=== PATIENT | male | born 1965 | race Caucasian/White ===

== ENCOUNTER 2016-12-14 14:51 | Emergency (ER) | payer OTHER ==
[2016-12-14 14:55] VITALS: BP 140/83; PULSE 118; RESP 18; TEMP 97.3; O2SAT 93
--- NOTE | 2016-12-14 16:11 | EDPHY ---
H & P Smoking Status: Never smoked Time Seen by Provider: 12/14/16 15:54 HPI/ROS: CHIEF COMPLAINT: Left ankle injury HISTORY OF PRESENT ILLNESS: 51-year-old male presents to the emergency department by private vehicle complaining of pain in his left ankle. The patient was playing tennis about 3 hours prior to arrival and went to lunged toward the neck at and developed severe pain in his left ankle. Denies any other trauma or injury. He is having trouble weight-bearing. ROS: Denies numbness or tingling in his toes, pain in the left knee or hip. ( Osiris Garcia) Past Medical/Surgical History: Negative (Osiris Garcia) Social History: (Osiris Garcia) Physical Exam: On examination the patient has obvious deformity to the left Achilles tendon. Clinically I think this patient has a ruptured Achilles tendon. He has no palpable bony tenderness. Nontender to palpate over the lateral or medial malleolus. Left knee is nontender. Gait is not tested. Minimal dorsiflexion. No other palpable bony tenderness. (Osiris Garcia) Constitutional: Initial Vital Signs Temperature (C) 36.3 C 12/14/16 14:53 Heart Rate 118 H 12/14/16 14:53 Respiratory Rate 18 12/14/16 14:53 Blood Pressure 140/83 H 12/14/16 14:53 O2 Sat (%) 93 12/14/16 14:53 O2 Delivery Mode Room Air Allergies/Adverse Reactions: Penicillins Allergy (Verified 12/14/16 14:57) Home Medications: Medication Instructions Recorded NK [No Known Home Meds] 12/14/16 MDM/Departure - MDM Procedures: Patient was placed in a Herron boot and examined post application in good placement with normal INFORMATICS SCIENTIST. (Osiris Garcia) ED Course/Re-evaluation: Clinically I think this patient has a ruptured left Achilles tendon. I do not think any laboratory studies are indicated. He was placed in a Herron boot, he has his own crutches, he will be nonweightbearing of will follow up with orthopedic surgery this week. He was comfortable with this plan. (Osiris Garcia) - Depart Disposition: Home, Routine, Self-Care Clinical Impression: Achilles rupture, left Qualifiers: Encounter type: initial encounter Qualified Code(s): S86.012A - Strain of left Achilles tendon, initial encounter Condition: Good Instructions: Achilles Tendon Rupture (ED) Additional Instructions: Gopal peres for comfort and support. Nonweightbearing, use crutches. Referrals: Randy Rosa MD [Medical Doctor] - As per Instructions ([facility] orthopedic surgeon) Roro Silva MD [Medical Doctor] - As per Instructions (Orthopedic surgeon on- call)
== END 2016-12-14 16:24 | disposition home or self-care (01) ==
DX: S86.012A Strain of left Achilles tendon, initial encounter (principal); X58.XXXA Exposure to other specified factors, initial encounter; Y93.73 Activity, racquet and hand sports
CPT/HCPCS: L4386

== ENCOUNTER 2018-04-21 09:57 | Emergency (ER) | payer OTHER ==
--- NOTE | 2018-04-21 10:17 | EDPHY ---
H & P Stated Complaint: Lightheaded/Dizzy Time Seen by Provider: 04/21/18 10:17 HPI/ROS: HPI: This is a 52-year-old male who presents with Chief Complaint: Lightheadedness, dizziness Location:head Quality: Dizziness Duration: Prior to arrival Signs and Symptoms: No fever, no nasal congestion, no headache, no neck stiffness, no chest pain, no shortness of breath, no nausea, no vomiting, no lower extremity edema Timing: Acute, intermittent episodes Severity: [id number] Context: Patient is generally healthy, takes no medications regularly, presents with 3 episodes of dizziness described as lightheadedness and fullness that started while [place] to [place] this [place]. Patient was in his vehicle in traffic when he started to feel lightheaded. He denies any vision changes, chest pain, shortness of breath, headache, nausea, vomiting, LOC, global amnesia. He reports that the incident lasted approximately 15-30 seconds and self resolved. He denies that the dizziness was positional in nature. He pulled off a eye 25 and went to [employer] saline or shoes as he believes that he may have had low blood sugar. He reports that he only had half a cup of decaf coffee this morning prior to driving to work for a meeting. He reports that this is not abnormal for him to skip breakfast or to have a later breakfast. He did do some thin abnormal last night have a Lisy at dinner reports. No history of cardiac disease in patient or his family. Patient reports that the incident occurred again while he was getting out of his vehicle to go to the [address] and only lasted a few seconds at that time. He has had less stress than normal lately. Patient denies any prodrome of nausea, vomiting, tunnel vision, diaphoresis or warmth. Dizziness or lightheadedness was not associated with any head movement or pressure on the neck. Patient reports that he does not drink enough water throughout the day. Modifying Factors: None Comment: ROS: see HPI Constitutional: No fever, no chills, no weight loss Eyes: No blurred vision Respiratory: No shortness of breath, no cough Cardiovascular: No chest pain Gastrointestinal: No nausea, no vomiting, no diarrhea Genitourinary: No dysuria Extremities: No myalgias Neurologic: No weakness, no numbness Skin: No rashes Hematologic: No bruising, no bleeding MEDICAL/SURGICAL/SOCIAL HISTORY: Medical history: Generally healthy. Does not take any regular medications. Surgical history: Denies Social history: Never smoked. . Family history noncontributory. CONSTITUTIONAL: Extremely polite and cooperative middle-aged male, at bedside, awake and alert, no obvious distress HEENT: Atraumatic and normocephalic, PERRL, EOMI. Nares patent; no rhinorrhea; no nasal mucosal edema. Tympanic membranes clear. Oropharynx clear, no exudate and moist pink mucosa. Airway patent. No lymphadenopathy. No meningismus. No carotid bruits appreciated. Cardiovascular: Normal S1/S2, regular rate, regular rhythm, without murmur rub or gallop. PULMONARY/CHEST: Symmetrical and nontender. Clear to auscultation bilaterally. Good air movement. No accessory muscle usage. ABDOMEN: Soft, nondistended, nontender, no rebound, no guarding, no peritoneal signs, no masses or organomegaly. No CVAT. EXTREMITIES: 2/2 pulses, strength 5/5, no deformities, no clubbing, no cyanosis or edema. NEUROLOGICAL: no focal neuro deficits. GCS 15. SKIN: Warm and dry, no erythema. no rash. Good capillary refill. Source: Patient, Family () Exam Limitations: No limitations - Personal History Current Tetanus/Diphtheria Vaccine: Yes - Medical/Surgical History Hx Asthma: No Hx Chronic Respiratory Disease: No Hx Diabetes: No Hx Cardiac Disease: No Hx Renal Disease: No Hx Cirrhosis: No Hx Alcoholism: No Hx HIV/AIDS: No Hx Splenectomy or Spleen Trauma: No Other PMH: denies - Social History Smoking Status: Never smoked Constitutional: Initial Vital Signs Temperature (C) 36.5 C 04/21/18 10:00 Heart Rate 59 L 04/21/18 10:00 Respiratory Rate 18 04/21/18 10:00 Blood Pressure 148/80 H 04/21/18 10:00 O2 Sat (%) 98 04/21/18 10:00 O2 Delivery Mode Room Air Allergies/Adverse Reactions: Penicillins Allergy (Verified 04/21/18 10:02) Home Medications: Medication Instructions Recorded NK [No Known Home Meds] 12/14/16 Medical Decision Making ED Course/Re-evaluation: EKG, labs, orthostatics, IV fluids ordered Placed on er tech that showed no arrhythmias or heart block while in the emergency room. Dizziness etiology will evaluate for Cardiovascular mediated verses neurally mediated versus orthostatic hypotension mediated. No signs of infectious etiology. Vital signs stable upon arrival. orthostatics unremarkable and did not reproduce dizziness 1025: Initial EKG shows some ST prominence in V3 and V4 but no ST acute ischemic signs 1043: istat troponin negative Labs reviewed. No signs of leukocytosis/anemia/platelet dysfunction/SAFIA/ electrolyte imbalance. No signs of CVA/otitis media/sinusitis/vertigo/eustachian tube dysfunction/ACS/ syncope/arrhythmias 1200: Reassessed patient who reports complete resolution of dizziness. Suspect low blood sugar versus hypovolemia. Patient will follow up with his primary care provider and determine if he needs Cardiology follow-up for tilt-table testing. This patient was seen under the supervision of my secondary supervising physician. I evaluated care for this patient independently. Discussed this patient with Dr. Gaytan. Differential Diagnosis: Dizziness including but not limited to peripheral and central causes of vertigo , orthostatic causes including dehydration, and blood loss. - Data Points Laboratory Results: Laboratory Results 04/21/18 10:30 04/21/18 10:30 04/21/18 04/21/18 04/21/18 10:34 10:30 10:30 WBC 4.93 10^3/uL 10^3/uL (3.80-9.50) RBC 5.16 10^6/uL 10^6/uL (4.40-6.38) Hgb 16.6 g/dL g/dL (13.7-17.5) Hct 47.3 % % (40.0-51.0) MCV 91.7 fL fL (81.5-99.8) MCH 32.2 pg pg (27.9-34.1) MCHC 35.1 g/dL g/dL (32.4-36.7) RDW 11.7 % % (11.5-15.2) Plt Count 174 10^3/uL 10^3/uL (150-400) MPV 9.2 fL fL (8.7-11.7) Neut % (Auto) 54.8 % % (39.3-74.2) Lymph % (Auto) 34.1 % % (15.0-45.0) [place] % (Auto) 8.9 % % (4.5-13.0) Eos % (Auto) 1.4 % % (0.6-7.6) Baso % (Auto) 0.6 % % (0.3-1.7) Nucleat RBC Rel Count 0.0 % % (0.0-0.2) Absolute Neuts (auto) 2.70 10^3/uL 10^3/uL (1.70-6.50) Absolute Lymphs (auto) 1.68 10^3/uL 10^3/uL (1.00-3.00) Absolute Monos (auto) 0.44 10^3/uL 10^3/uL (0.30-0.80) Absolute Eos (auto) 0.07 10^3/uL 10^3/uL (0.03-0.40) Absolute Basos (auto) 0.03 10^3/uL 10^3/uL (0.02-0.10) Absolute Nucleated RBC 0.00 10^3/uL 10^3/uL (0-0.01) Immature Gran % 0.2 % % (0.0-1.1) Immature Gran # 0.01 10^3/uL 10^3/uL (0.00-0.10) Sodium 142 mEq/L mEq/L (135-145) Potassium 4.8 mEq/L mEq/L (3.3-5.0) Chloride 105 mEq/L mEq/L (97-110) Carbon Dioxide 25 mEq/l mEq/l (22-31) Anion Gap 12 mEq/L mEq/L (8-16) BUN 16 mg/dL mg/dL (7-23) Creatinine 1.0 mg/dL mg/dL (0.7-1.3) Estimated GFR > 60 Glucose 85 mg/dL mg/dL (70-100) Calcium 9.4 mg/dL mg/dL (8.5-10.4) POC Troponin I 0.00 ng/mL ng/mL (0.00-0.08) Medications Given: Discontinued Medications Sodium Chloride (Ns) 1,000 mls @ 0 mls/hr IV ONCE ONE; Wide Open PRN Reason: Protocol Stop: 04/21/18 10:24 Last Admin: 04/21/18 10:43 Dose: 1,000 mls Point of Care Test Results: Chemistry 04/21/18 10:34 POC Troponin I 0.00 ng/mL ng/mL (0.00-0.08) Departure - Departure Disposition: Home, Routine, Self-Care Clinical Impression: Dizzinesses Condition: Good Instructions: Dizziness (ED) Additional Instructions: Consume a minimum of 8-10 glasses of water or electrolyte fluid replacement drinks that include Gatorade, Powerade, Pedialyte. Please make sure to eat a minimum 3 meals daily. Change positions slowly if you experience dizziness. Follow-up with your primary care provider in the next 1-2 weeks. If symptoms persist or worsen, follow up with Cardiology to determine if your candidate for tilt-table testing. Referrals: Leigh Link MD [Primary Care Provider] - As per Instructions
[2018-04-21] MEDS ORDERED: NS 1,000 ML IV ONE (10:23)
--- NOTE | 2018-04-21 10:25 | CPEKG ---
Heart Rate: 58 RR Interval: 1034 P-R Interval: 168 QRSD Interval: 84 QT Interval: 440 QTC Interval: 433 P [place]: 5 QRS [place]: 27 T Wave [place]: 2 EKG Severity - OTHERWISE NORMAL ECG - EKG Impression: SINUS ARRHYTHMIA, RATE 49-66 EKG Impression: ST ELEV, PROBABLE NORMAL EARLY REPOL PATTERN Electronically Signed By: Will Gaytan 21-Apr-2018 10:38:25
[2018-04-21 10:42] LABS: PLATELET COUNT 174 10^3/uL (150-400)
[2018-04-21 12:10] VITALS: BP 144/82
== END 2018-04-21 12:11 | disposition home or self-care (01) ==
DX: R42 Dizziness and giddiness (principal); E86.9 Volume depletion, unspecified
CPT/HCPCS: 84484-PO